=== PATIENT | female | born 1950 | race African-American/Black ===

== ENCOUNTER 2022-02-05 10:12 | Emergency (ER) | payer OTHER ==
[2022-02-05 10:48] VITALS: BMI 44.8
[2022-02-05 12:47] LABS: BASO % 0.7 % (0-2.0); EOS % 0.1 % (0-4.5); HEMATOCRIT 38.5 % (32.4-45.2); HEMOGLOBIN 12.6 GM/dL (10.7-15.3); LYMPH % 9.5 % (8-40); MCH 25.1 pg (25.7-33.7); MCHC 32.7 g/dl (32.0-36.0); MEAN CELL VOLUME 76.7 fl (80-96); MEAN PLT VOLUME 7.6 fl (7.5-11.1); MONO % 6.3 % (3.8-10.2); NEUT % 83.4 % (42.8-82.8); PLATELET COUNT 847 10^3/uL (134-434); RBC 5.02 M/mm3 (3.60-5.2); WHITE BLOOD COUNT 10.7 K/mm3 (4.0-10.0)
[2022-02-05 12:54] LABS: INR 1.16 (0.83-1.09); PROTHROMBIN TIME (PATIENT) 13.4 SEC (9.7-13.0)
[2022-02-05 12:57] LABS: ACTIVATED PTT 31.9 SECONDS (25.2-36.5)
[2022-02-05 13:14] LABS: CALCIUM 10.5 mg/dL (8.5-10.1)
[2022-02-05 13:15] LABS: BLOOD UREA NITROGEN 13.9 mg/dL (7-18)
[2022-02-05 13:16] LABS: CREATININE 0.6 mg/dL (0.55-1.3)
[2022-02-05 13:19] LABS: BILIRUBIN,TOTAL 0.7 mg/dL (0.2-1); TOT PROT 7.8 g/dl (6.4-8.2)
[2022-02-05 14:06] LABS: ERYTHROCYTE SEDIMENTATION RATE 5 mm/hr (0-30)
[2022-02-05 15:28] VITALS: BP 140/71; PULSE 85; TEMP 97.6
== END 2022-02-05 15:47 | disposition home or self-care (01) ==
LOC: JER 10:12
DX: L98.499 Non-pressure chronic ulcer of skin of other sites with unspecified severity (principal)
CPT/HCPCS: 36415; 71045-TC-FY; 73610-TC-RT-FY; 73630-TC-RT-FY; 80053; 82962; 85025; 85610; 85651; 85730; 86140; 86850; 86900; 86901; 93005; 93010; 99285-25

== ENCOUNTER 2024-04-14 08:37 | Day surgery (SDC) | payer OTHER ==
[2024-04-12 08:38] VITALS: BMI 45.7
[2024-04-14] MEDS ORDERED: LIDOCAINE HCL/PF 2% SDV 5ML VIAL ONE (08:51)
[2024-04-14] MEDS ORDERED: PROPOFOL 40 ML ONE (08:51)
[2024-04-14 10:27] VITALS: PULSE 77; RESP 16; TEMP 97.2
[2024-04-14 10:56] VITALS: BP 125/79
== END 2024-04-14 11:20 | disposition home or self-care (01) ==
LOC: FASU-ENDO 08:37
PROVIDERS: ATTEND Internal Medicine Gastroenterology
PROC: 0DBL8ZX Excision of Transverse Colon, Via Natural or Artificial Opening Endoscopic, Diagnostic (ICD-10-PCS; principal; 2024-04-14 09:45)
DX: Z12.11 Encounter for screening for malignant neoplasm of colon (principal); D12.3 Benign neoplasm of transverse colon; K64.2 Third degree hemorrhoids; K57.30 Diverticulosis of large intestine without perforation or abscess without bleeding; R19.5 Other fecal abnormalities
CPT/HCPCS: 88305-TC